=== PATIENT | male | born 1985 | race Caucasian/White ===

== ENCOUNTER 2020-05-20 18:44 | Emergency (ER) | payer OTHER ==
[~2020-05-20 18:44] MED LIST: KEFLEX500 MG PO; NORCO 5-325 TA1 EACH PO
[2020-05-20] MEDS ORDERED: CLEOCIN300 MG PO (20:03)
== END 2020-05-20 20:45 | disposition home or self-care (01) ==
LOC: FER 18:44
DX: K02.9 Dental caries, unspecified (principal); K03.81 Cracked tooth; F17.210 Nicotine dependence, cigarettes, uncomplicated; Z88.0 Allergy status to penicillin
CPT/HCPCS: 99282; J1885; Q0163